=== PATIENT | female | born 1990 | race Caucasian/White ===

== ENCOUNTER 2018-05-20 17:01 | Inpatient (IN) | payer OTHER ==
[~2018-05-20] VITALS: Ht 162.6 cm; Wt 64.9 kg
[2018-05-21] MEDS ORDERED: PRENATAL GUMMI1 EACH PO (17:29)
[2018-05-21] MEDS ORDERED: INTEGRA PLUS C1 EACH PO (17:29)
== END 2018-05-22 11:37 | disposition home or self-care (01) | DRG 781 ==
LOC: OBS/DEL 17:01 → LDR 05-21 11:49
PROC: 4A1HXCZ Monitoring of Products of Conception, Cardiac Rate, External Approach (ICD-10-PCS; principal; 2018-05-21)
PROC: 30233N1 Transfusion of Nonautologous Red Blood Cells into Peripheral Vein, Percutaneous Approach (ICD-10-PCS; 2018-05-21)
DX: O99.013 Anemia complicating pregnancy, third trimester (principal); D50.0 Iron deficiency anemia secondary to blood loss (chronic)

== ENCOUNTER 2018-08-10 06:35 | Inpatient (IN) | payer OTHER ==
[~2018-08-10] VITALS: Ht 162.6 cm; Wt 69.9 kg
[~2018-08-10 06:35] MED LIST: INTEGRA PLUS C1 EACH PO; PRENATAL GUMMI1 EACH PO
== END 2018-08-13 14:44 | DRG 807 ==
LOC: OBS/DEL 06:35 → OB/GYN 17:23 → LDR 17:23 → OB/GYN 08-11 14:51
PROVIDERS: ADMIT Specialist
PROC: 10E0XZZ Delivery of Products of Conception, External Approach (ICD-10-PCS; principal; 2018-08-11)
PROC: 0W8NXZZ Division of Female Perineum, External Approach (ICD-10-PCS; 2018-08-11)
PROC: 4A1HXCZ Monitoring of Products of Conception, Cardiac Rate, External Approach (ICD-10-PCS; 2018-08-11)
DX: O80 Encounter for full-term uncomplicated delivery (principal); Z37.0 Single live birth; Z3A.40 40 weeks gestation of pregnancy